=== PATIENT | female | born 1980 | race Caucasian/White ===

== ENCOUNTER 2020-06-07 12:17 | Emergency (ER) | payer MEDICAID ==
[~2020-06-07] VITALS: Ht 158.8 cm; Wt 65.9 kg
[~2020-06-07 12:17] MED LIST: MOTRIN800 MG PO; PRENATAL COMPLE1 TAB PO; SUBUTEX2 MG PO; SUBUTEX8 MG SL; XANAX0.5 MG PO; ZANTAC150 MG PO
[2020-06-07 12:23] VITALS: Ht 158.8 cm; Wt 65.9 kg
[2020-06-07 12:45] LABS: BASOPHILS 0.8 % (0-2); CALC OSMOLALITY 276 mosm/kg (275-300); CALCIUM 8.6 mg/dL (8.5-10.1); CARBON DIOXIDE 25.1 mmol/L (21.0-32.0); CHLORIDE - SERUM 106 mmol/L (98-107); EOSINOPHILS 3.5 % (0-7); GLUCOSE 123 mg/dL (74-106); HEMATOCRIT 37.9 % (36.0-48.0); HEMOGLOBIN 12.6 g/dL (12-16); IMMATURE GRANULOCYTES 0.3 % (0-5); LYMPHOCYTES 49.5 % (15-50); MCH 29.6 pg (26.0-34.0); MCHC 33.2 g/dL (31.0-37.0); MEAN PLATELET VOLUME 9.7 fL (7.4-10.4); MONOCYTES 11.5 % (2-11); NEUTROPHILS 34.4 % (40-80); POTASSIUM - SERUM 3.6 mmol/L (3.5-5.1); RBC 4.26 10x6/uL (4.00-5.40); SODIUM 138 mmol/L (136-145); UREA NITROGEN 13 mg/dL (7-18); WBC 10.2 10x3/uL (4.8-10.8); eGFR NON AFRICAN AMERICAN 66 mL/min (90-120)
[2020-06-07 12:50] LABS: PLATELET COUNT 365 10x3/uL (130-400)
[2020-06-07 12:57] LABS: APTT 23.1 SECONDS (22.8-39.4); INR 0.96 (0.85-1.17); PROTIME 12.8 SECONDS (11.6-15.0)
[2020-06-07 13:03] LABS: ACETAMINOPHEN 0.2 ug/mL (10.0-30.0); ALBUMIN 3.7 g/dL (3.4-5.0); ALKALINE PHOSPHATASE 86 U/L (30-120); ALT (SGPT) 20 U/L (10-68); BILIRUBIN - TOTAL 0.26 mg/dL (0.2-1.3); CKMB 0.9 U/L (0.0-3.6); CREATINE KINASE 74 UL (21-215); MAGNESIUM - SERUM 2.1 mg/dL (1.8-2.4); PROTEIN - SERUM 6.7 g/dL (6.4-8.2); THYROID STIMULATING HORMONE 0.75 uIU/mL (0.36-3.74)
[2020-06-07 13:04] LABS: TROPONIN-I < 0.017 ng/mL (0.000-0.060)
[2020-06-07 13:17] LABS: BILIRUBIN NEGATIVE (NEGATIVE); KETONE NEGATIVE (NEGATIVE); NITRITE NEGATIVE (NEGATIVE); UROBILINOGEN NORMAL mg/dL (< 2)
[2020-06-07 13:34] LABS: UDS - AMPHET POSITIVE QUAL (NEGATIVE); UDS - BARB NEGATIVE QUAL (NEGATIVE); UDS - BENZO NEGATIVE QUAL (NEGATIVE); UDS - COCAINE NEGATIVE QUAL (NEGATIVE); UDS - OPIATE NEGATIVE QUAL (NEGATIVE); UDS - PCP NEGATIVE QUAL (NEGATIVE); UDS - THC POSITIVE QUAL (NEGATIVE)
[2020-06-07 14:55] VITALS: BP 108/75
== END 2020-06-07 14:55 | disposition other institution (70) ==
LOC: D.ER 12:17
PROVIDERS: Family Medicine
DX: R41.82 Altered mental status, unspecified (principal); T42.6X1A Poisoning by other antiepileptic and sedative-hypnotic drugs, accidental (unintentional), initial encounter; Z53.29 Procedure and treatment not carried out because of patient's decision for other reasons